=== PATIENT | female | born 1980 | race Two or more races ===

== ENCOUNTER 2024-11-19 01:12 | Inpatient (IN) | payer BC, OTHER ==
[~2024-11-19] VITALS: Ht 149.9 cm; Wt 75.0 kg
[2024-11-19 01:54] LABS: COVID AG,FIA SOURCE NASAL SWAB
[2024-11-19] MEDS: SODIUM CHLORIDE 0.9% 2,250 ML IV ONE (01:57)
[2024-11-19] MEDS ORDERED: 0.9% SODIUM CHLORIDE 10 ML SYRINGE IVP PRN (02:00)
[2024-11-19 02:05] LABS: INFLUENZA TYPE B NEGATIVE FOR TYPE B (NEGATIVE); SARS-COV2 (COVID) ANTIGEN,FIA Negative (Negative)
[2024-11-19] MEDS: SODIUM CHLORIDE 0.9% 1,500 ML IV ONE (02:06)
[2024-11-19 02:07] LABS: INFLUENZA TYPE A POSITIVE FOR TYPE A (NEGATIVE)
[2024-11-19 02:28] LABS: BASOPHILS % (AUTO) 0.4 % (0.0-2.0); EOSINOPHILS % (AUTO) 0.6 % (1.0-6.0); HEMATOCRIT 33.9 % (36-46); HEMOGLOBIN 11.4 g/dL (12.0-16.0); LYMPHOCYTES # (AUTO) 0.5 K/uL (1.0-4.8); LYMPHOCYTES % (AUTO) 6.1 % (22.0-44.0); MEAN CORPUSCULAR HEMOGLOBIN 26.7 pg (26.0-34.0); MEAN CORPUSCULAR HGB CONC 33.4 G/dL (31.0-37.0); MEAN CORPUSCULAR VOLUME 80 fL (80-100); MONOCYTES # (AUTO) 0.5 K/uL (0.1-1.0); NEUTROPHILS # (AUTO) 6.7 K/uL (1.8-7.7); PLATELET COUNT (AUTO) 334 K/uL (150-450); RED BLOOD CELL COUNT(AUTO) 4.26 MIL/uL (4.00-5.20); RED CELL DISTRIBUTION WIDTH 14.6 % (11.5-14.5); WHITE BLOOD COUNT (AUTO) 7.8 K/uL (4.5-11.0)
[2024-11-19 02:35] LABS: NEUTROPHILS % (AUTO) 86.9 % (40.0-70.0)
[2024-11-19 02:38] LABS: ANION GAP 11 mmol/L (8-16); CARBON DIOXIDE 22 mmol/L (22-29); CHLORIDE 102 mmol/L (98-107); CREATININE 1.09 mg/dL (0.60-1.30); GLOMERULAR FILTR. RATE CALC 54 mL/min (>60); GLUCOSE,RANDOM 209 mg/dL (70-110); POTASSIUM 3.5 mmol/L (3.5-5.1); SODIUM SERUM 135 mmol/L (136-145); UREA NITROGEN, BLOOD 10 mg/dL (7-18)
[2024-11-19 02:46] LABS: LACTIC ACID 1.7 mmol/L (0.4-2.0)
[2024-11-19 02:51] LABS: ALANINE AMINOTRANSFERASE 75 U/L (12-78); ALBUMIN 2.9 g/dL (3.4-5.0); ALKALINE PHOSPHATASE 112 U/L (46-116); ASPARTATE AMINOTRANSFERASE 78 U/L (15-37); BILIRUBIN,TOTAL 0.4 mg/dL (0.1-1.0); HCG,QUANTITATIVE 1 mIU/mL (0-6); TOTAL PROTEIN, SERUM 6.5 g/dL (6.4-8.2)
[2024-11-19] MEDS: KETOROLAC TROMETHAMINE 30 MG/ML VIAL IVP ONE ×2 (02:59→06:29)
[2024-11-19 03:01] LABS: APPEARANCE,URINE CLEAR (CLEAR); BILIRUBIN,URINE NEGATIVE (NEGATIVE); COLOR,URINE COLORLESS (YELLOW); GLUCOSE, URINE (UA) 300-500 mg/dL (NEGATIVE); KETONES,URINE NEGATIVE (NEGATIVE); LEUKOCYTE ESTERASE ,URINE NEGATIVE (NEGATIVE); NITRATE,URINE NEGATIVE (NEGATIVE); OCCULT BLOOD,URINE NEGATIVE (NEGATIVE); PROTEIN,URINE NEGATIVE (NEGATIVE); SPECIFIC GRAVITIY, URINE 1.012 (1.003-1.030); UROBILINOGEN,URINE <=1.0 mg/dL (<=1.0)
[2024-11-19 03:04] LABS: BACTERIA,URINE None Seen /HPF (None Seen); RBC,URINE None Seen /HPF (0-2); SQUAMOUS EPITHELIAL CELL,UR Few /LPF (None Seen); WBC,URINE None Seen /HPF (0-5)
[2024-11-19 03:09] VITALS: PULSE 113; RESP 18; RESP 20; O2SAT 99
[2024-11-19] MEDS: ALBUTEROL SULFATE 2.5 MG/0.5 ML NEB SOLUTION NEB ONE (03:09)
[2024-11-19 03:20] VITALS: PULSE 117; RESP 18; O2SAT 100
[2024-11-19] MEDS: ONDANSETRON HCL 4 MG/2 ML VIAL IVP ONE (04:43)
[2024-11-19] MEDS: OSELTAMIVIR PHOSPHATE 30 MG CAPSULE PO ONE (04:43)
[2024-11-19] MEDS: GuaiFENesin/CODEINE [SUGAR-FREE] 200-20MG/10 ML LIQUID UDCUP PO ONE (04:44)
[2024-11-19] MEDS: BENZONATATE 100 MG CAPSULE PO ONE (06:29)
[2024-11-19] MEDS: OxyCODONE HCL 5 MG IR TABLET PO ONE (06:29)
[2024-11-19] MEDS: SODIUM CHLORIDE 0.9% 1,000 ML IV ONE (07:40)
[2024-11-19] MEDS ORDERED: MAGNESIUM HYDROXIDE SUSPENSION 30 ML UDCUP PO PRN (12:45)
[2024-11-19] MEDS ORDERED: DEXTROSE 50%-WATER 25 GM/50 ML SYRINGE IVP PRN (12:45)
[2024-11-19] MEDS ORDERED: ZOLPIDEM TARTRATE 5 MG TABLET PO PRN (12:45)
[2024-11-19] MEDS ORDERED: BISACODYL 10 MG RECTAL RECTAL SUPPOSITORY PR PRN (12:45)
[2024-11-19] MEDS ORDERED: MORPHINE SULFATE 2 MG/ML SYRINGE IVP PRN (12:45)
[2024-11-19] MEDS: *CLINICAL-LEVOFLOXACIN IVPB DOSING CLINICAL ONE (12:51)
[2024-11-19] MEDS: HYDROCODONE/ACETAMINOPHEN 5-325 MG TABLET PO PRN (12:59)
[2024-11-19] MEDS: BENZONATATE 100 MG CAPSULE PO SCH (12:59)
[2024-11-19 13:00] VITALS: BP 117/55; PULSE 111; RESP 22; TEMP 101.8; O2SAT 98
[2024-11-19] MEDS: LEVOFLOXACIN 750 MG/D5% WATER 150 ML IV SCH (15:43)
[2024-11-19 16:55] VITALS: BP 138/91; PULSE 98; RESP 20; TEMP 101.5; O2SAT 94
[2024-11-19] MEDS ORDERED: IBUP-1506 PO (17:23)
[2024-11-19] MEDS ORDERED: METF-1211 PO (17:23)
[2024-11-19] MEDS ORDERED: BENZ-227 PO (17:23)
[2024-11-19] MEDS ORDERED: ONDA-104 PO (17:23)
[2024-11-19] MEDS: HEPARIN SODIUM,PORCINE 5,000 UNITS/ML VIAL SQ SCH (17:31)
[2024-11-19] MEDS: INSULIN LISPRO 100 UNITS/ML SQ PRN (17:32)
[2024-11-19 20:43] VITALS: BP 98/55; PULSE 87; RESP 20; TEMP 98; O2SAT 99
[2024-11-19 20:51] LABS: GLUCOMETER DEV NAME(LOC) 5N.1D; GLUCOSE,POINT OF CARE 181 MG/DL (70-110)
[2024-11-19] MEDS: ACETAMINOPHEN 325 MG TABLET PO PRN (20:51)
[2024-11-19] MEDS: DOCUSATE SODIUM 100 MG CAPSULE PO SCH (20:51)
[2024-11-19] MEDS: OSELTAMIVIR PHOSPHATE 75 MG CAPSULE PO SCH (20:51)
[2024-11-19 21:30] LABS: GLUCOMETER DEV NAME(LOC) 5N.1D; GLUCOSE,POINT OF CARE 128 MG/DL (70-110)
[2024-11-19 23:33] VITALS: BP 102/65; PULSE 84; RESP 18; TEMP 98.8; O2SAT 93
[2024-11-20 03:40] VITALS: BP 115/70; PULSE 82; RESP 16; TEMP 98.1; O2SAT 96
[2024-11-20 05:48] VITALS: BP 121/71; PULSE 81; RESP 16; TEMP 98.1; O2SAT 81; O2SAT 96
[2024-11-20 06:00] LABS: GLUCOMETER DEV NAME(LOC) 5N.1D; GLUCOSE,POINT OF CARE 132 MG/DL (70-110)
[2024-11-20 07:04] LABS: BASOPHILS % (AUTO) 0.3 % (0.0-2.0); EOSINOPHILS % (AUTO) 0.1 % (1.0-6.0); HEMATOCRIT 33.5 % (36-46); HEMOGLOBIN 11.1 g/dL (12.0-16.0); LYMPHOCYTES # (AUTO) 2.2 K/uL (1.0-4.8); LYMPHOCYTES % (AUTO) 53.8 % (22.0-44.0); MEAN CORPUSCULAR HEMOGLOBIN 26.7 pg (26.0-34.0); MEAN CORPUSCULAR HGB CONC 33.2 G/dL (31.0-37.0); MEAN CORPUSCULAR VOLUME 80 fL (80-100); MONOCYTES # (AUTO) 0.5 K/uL (0.1-1.0); NEUTROPHILS # (AUTO) 1.4 K/uL (1.8-7.7); NEUTROPHILS % (AUTO) 34.8 % (40.0-70.0); PLATELET COUNT (AUTO) 273 K/uL (150-450); RED BLOOD CELL COUNT(AUTO) 4.17 MIL/uL (4.00-5.20); RED CELL DISTRIBUTION WIDTH 14.8 % (11.5-14.5); WHITE BLOOD COUNT (AUTO) 4.1 K/uL (4.5-11.0)
[2024-11-20 07:24] VITALS: BP 124/78; PULSE 82; RESP 18; TEMP 100; O2SAT 97
[2024-11-20 07:41] LABS: ANION GAP 10 mmol/L (8-16); CALCIUM, TOTAL 7.8 mg/dL (8.8-10.5); CARBON DIOXIDE 23 mmol/L (22-29); CHLORIDE 104 mmol/L (98-107); CREATININE 0.98 mg/dL (0.60-1.30); GLOMERULAR FILTR. RATE CALC > 60 mL/min (>60); GLUCOSE,RANDOM 103 mg/dL (70-110); POTASSIUM 3.7 mmol/L (3.5-5.1); SODIUM SERUM 137 mmol/L (136-145); UREA NITROGEN, BLOOD 11 mg/dL (7-18)
[2024-11-20] MEDS: PANTOPRAZOLE SODIUM 40 MG DR TABLET PO SCH (08:23)
[2024-11-20] MEDS ORDERED: SODIUM CHLORIDE 0.9% 500 ML IV ONE (08:41)
[2024-11-20 12:00] VITALS: BP 109/65; PULSE 74; RESP 18; TEMP 98.4; O2SAT 97
[2024-11-20] MEDS: GuaiFENesin/CODEINE [SUGAR-FREE] 200-20MG/10 ML LIQUID UDCUP PO PRN (12:46)
[2024-11-20 15:06] LABS: GLUCOMETER DEV NAME(LOC) 5N.1D; GLUCOSE,POINT OF CARE 160 MG/DL (70-110)
[2024-11-20 16:00] VITALS: BP 107/67; PULSE 82; RESP 18; TEMP 98.6; O2SAT 96
[2024-11-20 16:55] LABS: GLUCOMETER DEV NAME(LOC) 5N.2C; GLUCOSE,POINT OF CARE 149 MG/DL (70-110)
[2024-11-20 20:01] VITALS: BP 122/75; PULSE 83; RESP 18; TEMP 99.1; O2SAT 96
[2024-11-20 23:45] LABS: GLUCOMETER DEV NAME(LOC) 5N.1D; GLUCOSE,POINT OF CARE 164 MG/DL (70-110)
[2024-11-21 00:21] VITALS: BP 102/56; PULSE 78; RESP 18; TEMP 99.1; O2SAT 99
[2024-11-21 07:48] LABS: HEMATOCRIT 34.6 % (36-46); HEMOGLOBIN 11.7 g/dL (12.0-16.0); MEAN CORPUSCULAR HEMOGLOBIN 26.8 pg (26.0-34.0); MEAN CORPUSCULAR HGB CONC 33.7 G/dL (31.0-37.0); MEAN CORPUSCULAR VOLUME 80 fL (80-100); PLATELET COUNT (AUTO) 293 K/uL (150-450); RED BLOOD CELL COUNT(AUTO) 4.35 MIL/uL (4.00-5.20); RED CELL DISTRIBUTION WIDTH 14.8 % (11.5-14.5); WHITE BLOOD COUNT (AUTO) 4.8 K/uL (4.5-11.0)
[2024-11-21 07:51] LABS: CALCIUM, TOTAL 7.7 mg/dL (8.8-10.5); CREATININE 1.07 mg/dL (0.60-1.30); POTASSIUM 3.3 mmol/L (3.5-5.1)
[2024-11-21 08:33] LABS: BAND NEUTROPHILS % (MANUAL) 0 % (0-5)
[2024-11-21 08:39] LABS: EOSINOPHILS % (MANUAL) 1 % (1-6); LYMPHOCYTES % (MANUAL) 42 % (22-44); MONOCYTES % (MANUAL) 7 % (2-9); REACTIVE LYMPHOCYTES 18 % (0-0); SEGMENTED NEUTROPHILS % 32 % (40-70); TOTAL CELLS COUNTED 100
[2024-11-21 08:45] LABS: GLUCOMETER DEV NAME(LOC) 5N.1D; GLUCOSE,POINT OF CARE 253 MG/DL (70-110)
[2024-11-21 10:07] VITALS: BP 101/63; PULSE 80; RESP 18; TEMP 98.6; O2SAT 98
[2024-11-21] MEDS: POTASSIUM CHLORIDE 20 MEQ ER TABLET PO ONE (10:29)
[2024-11-21] MEDS: ONDANSETRON HCL 4 MG/2 ML VIAL IVP PRN (12:01)
[2024-11-21 12:10] VITALS: BP 114/80; PULSE 84; RESP 18; TEMP 98.4; O2SAT 97
[2024-11-21] MEDS ORDERED: OSEL75CA17 PO (13:40)
[2024-11-21] MEDS ORDERED: BENZ-227 PO (13:40)
[2024-11-21] MEDS ORDERED: LEVO750T68 PO (13:40)
[2024-11-21 21:06] LABS: GLUCOMETER DEV NAME(LOC) 5N.1D; GLUCOSE,POINT OF CARE 119 MG/DL (70-110)
== END 2024-11-21 14:50 | disposition home or self-care (01) | DRG 871 ==
LOC: EDBD 01:12 → EMS 01:12 → EDH 07:42 → 5N 08:43
PROVIDERS: ADMIT Internal Medicine; ATTEND Internal Medicine
DX: A41.9 Sepsis, unspecified organism (principal); J10.00 Influenza due to other identified influenza virus with unspecified type of pneumonia; J96.91 Respiratory failure, unspecified with hypoxia; E87.20 Acidosis, unspecified; F17.210 Nicotine dependence, cigarettes, uncomplicated; Z20.822 Contact with and (suspected) exposure to COVID-19; D64.9 Anemia, unspecified; E11.65 Type 2 diabetes mellitus with hyperglycemia; Z79.899 Other long term (current) drug therapy
CPT/HCPCS: 71045; 80048; 80076; 81001; 81003; 82962; 83605; 84145; 84702; 85025; 87040; 87804; 93005; 94640; 99285; J1644; J1885; J1956; J2405; J7040; 36415-L1; 36415-TC; J7613